=== PATIENT | female | born 2000 | race American Indian/Alaskan Native ===

== ENCOUNTER 2021-11-15 02:53 | Outpatient (CLI) | payer MEDICAID ==
[2021-11-15] MEDS ORDERED: LACTATED RINGERS 500 ML IV ONE (07:17)
[2021-11-15 07:19] VITALS: BP 108/59
[2021-11-15 07:31] LABS: Bilirubin,Urine NEG (Negative); Blood,Urine NEG (Negative); Color,Urine Yellow (Yellow); Mucus,Urine FEW /HPF; Protein,Urine <15 mg/dL mg/dL (Negative); RBC,Urine < 1.0 /HPF (0.0-6.0); Urobilinogen,Urine < 2.0 mg/dL (<2.0)
== END 2021-11-15 08:16 | disposition home or self-care (01) ==
LOC: TRG 02:53 → APU 06:23 → TRG 08:16
PROVIDERS: ATTEND Obstetrics & Gynecology
DX: Z34.92 Encounter for supervision of normal pregnancy, unspecified, second trimester (principal); Z3A.22 22 weeks gestation of pregnancy
CPT/HCPCS: 59025; 81001